=== PATIENT | female | born 1980 | race Caucasian/White ===

== ENCOUNTER 2020-05-11 15:35 | Emergency (ER) | payer BC, OTHER ==
[2020-05-11 15:43] VITALS: BMI 26.6
[2020-05-11] MEDS ORDERED: KETOROLAC TROMETHAMINE 30 MG/1 ML VIAL IVPUSH ONE (16:48)
[2020-05-11] MEDS ORDERED: KETOROLAC TROMETHAMINE 30 MG/1 ML VIAL ONE (16:55)
[2020-05-11 17:53] LABS: EOS % 3.6 % (0-4.5); HEMATOCRIT 38.3 % (32.4-45.2); HEMOGLOBIN 13.2 GM/dL (10.7-15.3); LYMPH % 27.7 % (8-40); MCH 29.6 pg (25.7-33.7); MCHC 34.4 g/dl (32.0-36.0); MEAN CELL VOLUME 86.1 fl (80-96); MEAN PLT VOLUME 9.3 fl (7.5-11.1); MONO % 6.8 % (3.8-10.2); NEUT % 60.9 % (42.8-82.8); PLATELET COUNT 237 K/MM3 (134-434); RBC 4.45 M/mm3 (3.60-5.2); RDW 12.5 % (11.6-15.6); WHITE BLOOD COUNT 9.2 K/mm3 (4.0-10.0)
[2020-05-11 18:10] LABS: SODIUM 139 mmol/L (136-145)
[2020-05-11 18:11] LABS: CHLORIDE 106 mmol/L (98-107); POTASSIUM 3.9 mmol/L (3.5-5.1)
[2020-05-11 18:14] LABS: GLUCOSE,RANDOM 87 mg/dL (74-106)
[2020-05-11 18:15] LABS: ANION GAP 5 MMOL/L (8-16); CALCIUM 8.6 mg/dL (8.5-10.1); CO2 28 mmol/L (21-32); LIPASE 247 U/L (73-393)
[2020-05-11 18:16] LABS: ALBUMIN 4.2 g/dl (3.4-5.0); BLOOD UREA NITROGEN 13.5 mg/dL (7-18)
[2020-05-11 18:18] LABS: CREATININE 0.9 mg/dL (0.55-1.3); SGOT/AST 21 U/L (15-37); SGPT/ALT 35 U/L (13-61)
[2020-05-11 18:19] LABS: BILIRUBIN,TOTAL 0.3 mg/dL (0.2-1); TOT PROT 7.8 g/dl (6.4-8.2)
[2020-05-11 18:21] LABS: URINE APPEARANCE CLEAR; URINE BILIRUBIN NEGATIVE (NEGATIVE); URINE COLOR YELLOW; URINE GLUCOSE (UA) NEGATIVE (NEGATIVE); URINE KETONE NEGATIVE (NEGATIVE); URINE LEUK ESTERASE NEGATIVE (NEGATIVE); URINE NITRITE NEGATIVE (NEGATIVE); URINE PROTEIN NEGATIVE (NEGATIVE)
[2020-05-11 18:21] LABS: ALK PHOS 57 U/L (45-117)
[2020-05-11 20:32] VITALS: BP 135/88; PULSE 83; TEMP 98.5
== END 2020-05-11 20:33 | disposition home or self-care (01) ==
LOC: JER 15:35
PROC: 3E0333Z Introduction of Anti-inflammatory into Peripheral Vein, Percutaneous Approach (ICD-10-PCS; principal; 2020-05-11)
DX: M79.10 Myalgia, unspecified site (principal)
CPT/HCPCS: 36415; 76705-TC; 80053; 81003; 82550; 82553; 83690; 84484; 84703; 85025; 85379; 93005; 93010; 99285-25

== ENCOUNTER 2022-01-10 06:29 | Day surgery (SDC) | payer BC, OTHER ==
[2022-01-10] MEDS ORDERED: ROCURONIUM BROMIDE 50 MG/5 ML SYRINGE ONE ×2 (06:56→11:14)
[2022-01-10] MEDS ORDERED: MIDAZOLAM HCL 2 MG/2 ML SINGLE DOSE VIAL ONE (06:56)
[2022-01-10] MEDS ORDERED: SEVOFLURANE 250 ML BTL ONE (06:56)
[2022-01-10] MEDS ORDERED: PROPOFOL 20 ML ONE ×3 (06:56)
[2022-01-10 07:06] VITALS: BMI 25.8
[2022-01-10] MEDS ORDERED: EPINEPHrine/PF 1 MG/1 ML (1:1,000) AMPULE ONE (07:14)
[2022-01-10] MEDS ORDERED: BACITRACIN 15 GM TUBE TOPICAL OINTMENT ONE ×3 (07:15→13:49)
[2022-01-10] MEDS ORDERED: LIDOCAINE HCL 1%, 10 MG/ML (20ML VIAL) ONE (07:15)
[2022-01-10] MEDS ORDERED: HALOPERIDOL LACTATE 5 MG/ML ONE (08:15)
[2022-01-10] MEDS ORDERED: ceFAZolin SODIUM 1 GM VIAL ONE ×2 (08:59→13:11)
[2022-01-10] MEDS ORDERED: LIDOCAINE HCL 2% JELLY 10 ML CARTRIDGE ONE (08:59)
[2022-01-10] MEDS ORDERED: ONDANSETRON 4 MG/2 ML VIAL ONE ×2 (08:59→14:41)
[2022-01-10] MEDS ORDERED: KETOROLAC TROMETHAMINE 30 MG/1 ML VIAL ONE (08:59)
[2022-01-10] MEDS ORDERED: BACITRACIN 15 GM TUBE TOPICAL OINTMENT TP ONE (11:17)
[2022-01-10] MEDS ORDERED: HYDROmorphone HCL/PF 1 MG/ML VIAL ONE ×2 (12:21)
[2022-01-10] MEDS ORDERED: oxyCODONE HCL 5 MG TABLET PO PRN ×2 (13:31)
[2022-01-10] MEDS ORDERED: ONDANSETRON 4 MG/2 ML VIAL IVPUSH PRN (13:31)
[2022-01-10] MEDS ORDERED: PROMETHAZINE HCL 25 MG/1 ML VIAL IVPUSH PRN (13:31)
[2022-01-10] MEDS ORDERED: ACETAMINOPHEN 325 MG TABLET (FP) PO PRN (13:31)
[2022-01-10 14:58] VITALS: TEMP 96.8
[2022-01-10 15:25] VITALS: BP 140/70; PULSE 70
== END 2022-01-10 16:45 | disposition home or self-care (01) ==
LOC: FASU 06:29
PROVIDERS: ATTEND Surgery
CPT/HCPCS: 81025; 94760

== ENCOUNTER 2022-09-05 16:18 | Emergency (ER) | payer BC, OTHER ==
[2022-09-05 16:32] VITALS: RESP 18; BMI 27.3
[2022-09-05] MEDS ORDERED: SODIUM CHLORIDE 1,000 ML IV STA (17:08)
[2022-09-05] MEDS ORDERED: ACETAMINOPHEN 1000 MG/100 ML BAG IVPB ONE (17:08)
[2022-09-05] MEDS ORDERED: ACETAMINOPHEN INJECTION 100 ML IVPB ONE (17:13)
[2022-09-05 17:45] LABS: BASO % 0.8 % (0-2.0); EOS % 3.7 % (0-4.5); HEMATOCRIT 38.7 % (32.4-45.2); HEMOGLOBIN 13.2 GM/dL (10.7-15.3); LYMPH % 26.4 % (8-40); MCH 28.4 pg (25.7-33.7); MCHC 34.1 g/dl (32.0-36.0); MEAN CELL VOLUME 83.3 fl (80-96); MEAN PLT VOLUME 9.2 fl (7.5-11.1); MONO % 7.7 % (3.8-10.2); NEUT % 61.4 % (42.8-82.8); PLATELET COUNT 245 10^3/uL (134-434); RBC 4.64 M/mm3 (3.60-5.2); RDW 12.5 % (11.6-15.6); WHITE BLOOD COUNT 8.3 K/mm3 (4.0-10.0)
[2022-09-05 17:51] LABS: EPI CELLS 14 /uL (0-25.1); HCG,QUALITATIVE URINE Negative; HYALINE CASTS 1 /uL (0-3.1); PH,URINE 6.5 (5.0-8.0); URINE APPEARANCE CLEAR; URINE BACTERIA 95 /uL (0-1359); URINE BILIRUBIN NEGATIVE (NEGATIVE); URINE COLOR YELLOW; URINE GLUCOSE (UA) NEGATIVE (NEGATIVE); URINE KETONE TRACE (NEGATIVE); URINE LEUK ESTERASE NEGATIVE (NEGATIVE); URINE NITRITE NEGATIVE (NEGATIVE); URINE PROTEIN NEGATIVE (NEGATIVE); URINE RBC 8 /uL (0-23.9); URINE UROBILINOGEN 0.2 mg/dL (0.2-1.0); URINE WBC 4 /uL (0-25.8)
[2022-09-05 17:53] LABS: INR 1.06 (0.83-1.09); PROTHROMBIN TIME (PATIENT) 12.3 SEC (9.7-13.0)
[2022-09-05 18:06] LABS: ALBUMIN 4.1 g/dl (3.4-5.0); CALCIUM 8.8 mg/dL (8.5-10.1)
[2022-09-05 18:07] VITALS: BP 116/71; PULSE 78; TEMP 98.5
[2022-09-05 18:07] LABS: BLOOD UREA NITROGEN 14.4 mg/dL (7-18)
[2022-09-05 18:10] LABS: CREATININE 0.9 mg/dL (0.55-1.3)
[2022-09-05 18:11] LABS: BILIRUBIN,TOTAL 0.2 mg/dL (0.2-1); TOT PROT 7.8 g/dl (6.4-8.2)
== END 2022-09-05 19:55 | disposition home or self-care (01) ==
LOC: JER 16:18
PROC: 3E033NZ Introduction of Analgesics, Hypnotics, Sedatives into Peripheral Vein, Percutaneous Approach (ICD-10-PCS; principal; 2022-09-05)
PROC: 3E0337Z Introduction of Electrolytic and Water Balance Substance into Peripheral Vein, Percutaneous Approach (ICD-10-PCS; 2022-09-05)
DX: N92.0 Excessive and frequent menstruation with regular cycle (principal); N93.9 Abnormal uterine and vaginal bleeding, unspecified
CPT/HCPCS: 36415; 76830-TC; 80053; 81003; 84703; 85025; 85610; 85730; 86850; 86900; 86901; 87077; 87086; 99284-25

== ENCOUNTER 2022-11-14 19:19 | Emergency (ER) | payer BC, OTHER ==
[2022-11-14 19:29] VITALS: RESP 18; BMI 26.6
[2022-11-14] MEDS ORDERED: SODIUM CHLORIDE 0.9% 500 ML INFUS.BAG IV ONE (19:57)
[2022-11-14] MEDS ORDERED: DEXAMETHASONE LIQUID 0.5 MG/5 ML PO ONE (19:59)
[2022-11-14] MEDS ORDERED: DEXAMETHASONE SOD PHOSPHATE 10 MG/1 ML VIAL ONE (20:28)
[2022-11-14 20:30] LABS: BASO % 1.5 % (0-2.0); HEMATOCRIT 37.7 % (32.4-45.2); HEMOGLOBIN 12.9 GM/dL (10.7-15.3); LYMPH % 26.5 % (8-40); MCH 28.5 pg (25.7-33.7); MCHC 34.2 g/dl (32.0-36.0); MEAN CELL VOLUME 83.2 fl (80-96); MEAN PLT VOLUME 8.5 fl (7.5-11.1); PLATELET COUNT 272 10^3/uL (134-434); RBC 4.53 M/mm3 (3.60-5.2); RDW 12.7 % (11.6-15.6); WHITE BLOOD COUNT 10.3 K/mm3 (4.0-10.0)
[2022-11-14 20:41] LABS: POTASSIUM 3.9 mmol/L (3.5-5.1)
[2022-11-14 20:43] LABS: CALCIUM 9.1 mg/dL (8.5-10.1)
[2022-11-14 20:44] LABS: ALBUMIN 3.9 g/dl (3.4-5.0); BLOOD UREA NITROGEN 15.6 mg/dL (7-18)
[2022-11-14 20:47] LABS: CREATININE 0.8 mg/dL (0.55-1.3)
[2022-11-14 20:48] LABS: BILIRUBIN,TOTAL 0.3 mg/dL (0.2-1); TOT PROT 7.7 g/dl (6.4-8.2)
[2022-11-14] MEDS ORDERED: AMOXICILLIN 500 MG CAPSULE (FP) PO ONE (21:02)
[2022-11-14] MEDS ORDERED: AMOXICILLIN 500 MG CAPSULE (FP) ONE (21:06)
[2022-11-14 22:07] VITALS: BP 114/59; PULSE 65; TEMP 97.9
== END 2022-11-14 22:22 | disposition home or self-care (01) ==
LOC: JER 19:19
DX: R53.1 Weakness (principal); R42 Dizziness and giddiness; J02.9 Acute pharyngitis, unspecified; R55 Syncope and collapse
CPT/HCPCS: 36415; 80053; 84703; 85025; 87651; 93005; 93010; 99284-25